=== PATIENT | female | born 1990 | race Caucasian/White ===

== ENCOUNTER 2023-01-21 06:58 | Emergency (ER) | payer MEDICAID, SELFPAY ==
[2023-01-21 07:05] VITALS: BP 108/81; PULSE 74; RESP 24; TEMP 35.5; O2SAT 98; BMI 40.2
--- NOTE | 2023-01-21 07:12 | ED_ITS ---
HPI - General Adult General Time Seen by Provider: 07:12 <Chace Soriano MD - Last Filed: 01/21/23 07:25> Date Seen: 01/21/23 <Chace Soriano MD - Last Filed: 01/21/23 07:25> Chief complaint: Abdominal Pain <Chace Soriano MD - Last Filed: 01/21/23 07:25> Stated complaint: Abdominal pain <Chace Soriano MD - Last Filed: 01/21/23 07:25> Time Seen by Provider: 01/21/23 07:12 <Chace Soriano MD - Last Filed: 01/21/23 07:25> Source: patient <Chace Soriano MD - Last Filed: 01/21/23 07:25> Mode of arrival: ambulatory <Chace Soriano MD - Last Filed: 01/21/23 07:25> Limitations: no limitations <Chace Soriano MD - Last Filed: 01/21/23 07:25> History of Present Illness HPI narrative: 32-year-old female who presents today with abdominal pain. Review of chart shows prior emergency department visit for kidney stones a couple years ago. Patient comes in today with abdominal pain and right-sided back pain. Also says she has difficulty going the bathroom. Started this morning. Nausea vomiting. No fevers, no diarrhea. Tried Pepto-Bismol without relief. Has not taken any other medications. <Chace Soriano MD - Last Filed: 01/21/23 07:25> Related Data Home medications: Previous Rx's Medication Instructions Recorded azithromycin 500 mg tablet 500 mg PO DAILY 7 days #7 tabs 01/21/23 (Zithromax) hydrocodone 5 mg-acetaminophen 325 1 tab PO Q6H PRN pain #10 tabs 01/21/23 mg tablet <Chace Soriano MD - Last Filed: 01/21/23 07:25> Allergies/adverse reactions: Allergies Allergy/AdvReac Type Severity Reaction Status Date / Time amoxicillin [From Augmentin] Allergy Verified 01/21/23 07:05 clavulanic acid Allergy Verified 01/21/23 07:05 [From Augmentin] <Chace Soriano MD - Last Filed: 01/21/23 07:25> PFSH PFSH Social History: Social History Smoking Status: Former smoker Do you use any of these nicotine containing products: None How often do you have a drink containing alcohol: monthly or less How many standard drinks containing alcohol do you have on a typical day: 1 or 2 How often do you have six or more drinks on one occasion: Never AUDIT-C Alcohol total score: 1 Non-prescribed substance use: denies use service: No <Chace Soriano MD - Last Filed: 01/21/23 07:25> Exam Narrative: Exam Narrative: General: Well-developed and well-nourished, tearful and diaphoretic Head: Atraumatic and normocephalic Eyes: Pupils are equal reactive, extraocular motions intact, conjunctiva clear ENT: External nose and ears are normal, posterior pharynx without erythema or exudate Neck: No midline cervical tenderness, full spontaneous range of motion the neck, trachea midline, no adenopathy Heart: Regular rate and rhythm no murmurs or thrills Lungs: Clear to auscultation bilaterally without wheezes or crackles Abdomen: Soft, nontender, nondistended with active bowel sounds Musculoskeletal: No tenderness, deformity, or edema Neurologic: Awake, alert, and oriented x3, no gross focal neurologic deficits, cranial nerves intact as tested Psych: Mood and affect are appropriate Skin: No rashes <Chace Soriano MD - Last Filed: 01/21/23 07:25> Const: Vital Signs, click to edit/add: Vital Signs - 24 hr 01/21/23 07:05 Temperature 96 F L Pulse Rate [Pulse Oximeter] 74 Respiratory Rate 24 Blood Pressure [Le ft Forearm] 108/81 Pulse Oximetry 98 Oxygen Delivery Me thod Room Air <Chace Soriano MD - Last Filed: 01/21/23 07:25> Vital Signs, click to edit/add: Vital Signs - 24 hr 01/21/23 07:05 Temperature 96 F L Pulse Rate [Pulse Oximeter] 74 Respiratory Rate 24 Blood Pressure [Le ft Forearm] 108/81 Pulse Oximetry 98 Oxygen Delivery Me thod Room Air <Davy Arvizu MD - Last Filed: 01/21/23 11:07> Course Course Hospital Course: Patient seen examined, prior records reviewed. Patient presents today with generalized abdominal pain that radiates into the right flank. Prior cholecystectomy, reports history of kidney stones but is not sure if this feels similar not. Labs and CT scan are ordered. Anticipate sign out to oncoming provider. <Chace Soriano MD - Last Filed: 01/21/23 07:25> Vital Signs Vital signs: Initial Vital Signs Temperature 96 F L 01/21/23 07:05 Temperature Source Temporal Artery Scan 01/21/23 07:05 Pulse Rate 74 01/21/23 07:05 Pulse Rhythm Regular 01/21/23 07:05 Respiratory Rate 24 01/21/23 07:05 Blood Pressure 108/81 01/21/23 07:05 Blood Pressure Mean 90 01/21/23 07:05 Blood Pressure Position Supine 01/21/23 07:05 Pulse Oximetry 98 01/21/23 07:05 Oxygen Delivery Method Room Air 01/21/23 07:05 Vital Signs Temperature 96 F L 01/21/23 07:05 Pulse Rate 74 01/21/23 07:05 Respiratory Rate 24 01/21/23 07:05 Blood Pressure 108/81 01/21/23 07:05 Pulse Oximetry 98 01/21/23 07:05 Oxygen Delivery Method Room Air 01/21/23 07:05 Temperature 96 F L 01/21/23 07:05 Pulse Rate 74 01/21/23 07:05 Respiratory Rate 24 01/21/23 07:05 Blood Pressure 108/81 01/21/23 07:05 Pulse Oximetry 98 01/21/23 07:05 Oxygen Delivery Method Room Air 01/21/23 07:05 <Chace Soriano MD - Last Filed: 01/21/23 07:25> Initial Vital Signs Temperature 96 F L 01/21/23 07:05 Temperature Source Temporal Artery Scan 01/21/23 07:05 Pulse Rate 74 01/21/23 07:05 Pulse Rhythm Regular 01/21/23 07:05 Respiratory Rate 24 01/21/23 07:05 Blood Pressure 108/81 01/21/23 07:05 Blood Pressure Mean 90 01/21/23 07:05 Blood Pressure Position Supine 01/21/23 07:05 Pulse Oximetry 98 01/21/23 07:05 Oxygen Delivery Method Room Air 01/21/23 07:05 Vital Signs Temperature 96 F L 01/21/23 07:05 Pulse Rate 74 01/21/23 07:05 Respiratory Rate 24 01/21/23 07:05 Blood Pressure 108/81 01/21/23 07:05 Pulse Oximetry 98 01/21/23 07:05 Oxygen Delivery Method Room Air 01/21/23 07:05 Temperature 96 F L 01/21/23 07:05 Pulse Rate 74 01/21/23 07:05 Respiratory Rate 24 01/21/23 07:05 Blood Pressure 108/81 01/21/23 07:05 Pulse Oximetry 98 01/21/23 07:05 Oxygen Delivery Method Room Air 01/21/23 07:05 <Davy Arvizu MD - Last Filed: 01/21/23 11:07> Medical Decision Making MDM Narrative Medical decision making narrative: Patient's CT scan abdomen pelvis showed right middle lobe pneumonia. The patient will be getting IV Rocephin and Zithromax. Will await the rest of her lab studies to return. Likely will be able to be discharged home on Zithromax 5 mg daily for 1 week. Light activity recommended Advil or Aleve as needed. Follow up with primary care in the next 2-3 days <Davy Arvizu MD - Last Filed: 01/21/23 11:07> Lab Data Labs: Lab Results 01/21/23 01/21/23 01/21/23 Range/Units 07:15 07:18 09:00 WBC 12.01 H (4.50-11.00) K/uL RBC 4.45 (4.00-5.20) m/uL Hgb 15.5 (12.0-16.0) gm/dL Hct 44.6 (33.0-51.0) % MCV 100 (80-100) fL MCH 35 H (26-34) pg MCHC 35 (32-36) gm/dL RDW Coeff of Em 14.4 (11.5-15.5) % Plt Count 302 (140-440) K/uL Neut % (Auto) 86.7 H (42.0-72.0) % Lymph % (Auto) 7.2 L (20-44) % [place] % (Auto) 4.8 (0.0-11.0) % Eos % (Auto) 0.9 (0.0-7.0) % Baso % (Auto) 0.2 (0.0-3.0) % Neut # (Auto) 10.40 H (1.7-7.0) K/uL Lymph # (Auto) 0.90 (0.90-2.90) K/uL [place] # (Auto) 0.60 (0.00-0.90) K/UL Eos # (Auto) 0.10 (0.00-0.50) K/uL Baso # (Auto) 0.00 (0.00-0.30) K/uL Sodium 139 (135-149) mmol/L Potassium 3.6 (3.6-5.1) mmol/L Chloride 106 (96-114) mmol/L Carbon Dioxide 19 L (20-32) mmol/L BUN 9 (5-24) mg/dL Creatinine 0.8 (0.5-1.5) mg/dL Estimated Creat Clear 107.15 Estimated GFR 99 ml/min Glucose 130 H (60-115) mg/dL Calcium 9.3 (8.4-10.6) mg/dL Magnesium 1.4 L (1.5-2.6) mg/dL Total Bilirubin 1.4 (0.1-1.5) mg/dL Direct Bilirubin 0.1 (0.0-0.5) mg/dL AST 56 H (12-35) U/L ALT 81 H (4-35) U/L Alkaline Phosphatase 106 (40-150) U/L Total Protein 7.8 (6.0-8.3) g/dL Albumin 4.7 (3.3-5.0) g/dL Lipase 51 (23-300) U/L HCG, Qual Negative (Negative) Urine Color Yellow Cancelled (Yellow) Urine Appearance Slightly Cloudy A Cancelled (Clear) Urine pH 7.0 Cancelled (5.0-8.5) Ur Specific [place] 1.020 Cancelled (1.000-1.030) Urine Protein 2+ A Cancelled (Negative) Urine Glucose (UA) Negative Cancelled (Negative) Urine Ketones 4+ A Cancelled (Negative) Urine Blood Negative Cancelled (Negative) Urine Nitrite Negative Cancelled (Negative) Urine Bilirubin 1+ A Cancelled (Negative) Urine Urobilinogen 0.2 Cancelled (0.2-1.0) Ur Leukocyte Esterase 3+ A Cancelled (Negative) Urine RBC 0-2 Cancelled (0-2) Urine WBC 2-5 Cancelled (0-5) Urine WBC Clumps Cancelled Ur Squamous Epith Cells Moderate A Cancelled (None-Few) Jacob Biurate Crystals Cancelled Calcium Carbonate Cryst Cancelled Calcium Phosphate Cryst Cancelled Calcium Oxalate Crystal Cancelled Cystine Crystals Cancelled Uric Acid Crystals Cancelled Triple Phos Crystals Cancelled Sulfur Crystals Cancelled Cholesterol Crystals Cancelled Tyrosine Crystals Cancelled Hippuric Acid Crystals Cancelled Amorphous Sediment Cancelled Other Sediment Cancelled Urine Bacteria Moderate A Cancelled (None) Fatty Casts Cancelled Hyaline Casts Cancelled Fine Granular Casts Cancelled Coarse Granular Casts Cancelled Waxy Casts Cancelled RBC Casts Cancelled WBC Casts Cancelled Other Casts Cancelled Urine Starch Cancelled Urine Mucus Cancelled Urine Trichomonas Cancelled Urine Yeast Cancelled <Chace Soriano MD - Last Filed: 01/21/23 07:25> Lab Results 01/21/23 01/21/23 01/21/23 Range/Units 07:15 07:18 09:00 WBC 12.01 H (4.50-11.00) K/uL RBC 4.45 (4.00-5.20) m/uL Hgb 15.5 (12.0-16.0) gm/dL Hct 44.6 (33.0-51.0) % MCV 100 (80-100) fL MCH 35 H (26-34) pg MCHC 35 (32-36) gm/dL RDW Coeff of Em 14.4 (11.5-15.5) % Plt Count 302 (140-440) K/uL Neut % (Auto) 86.7 H (42.0-72.0) % Lymph % (Auto) 7.2 L (20-44) % [place] % (Auto) 4.8 (0.0-11.0) % Eos % (Auto) 0.9 (0.0-7.0) % Baso % (Auto) 0.2 (0.0-3.0) % Neut # (Auto) 10.40 H (1.7-7.0) K/uL Lymph # (Auto) 0.90 (0.90-2.90) K/uL [place] # (Auto) 0.60 (0.00-0.90) K/UL Eos # (Auto) 0.10 (0.00-0.50) K/uL Baso # (Auto) 0.00 (0.00-0.30) K/uL Sodium 139 (135-149) mmol/L Potassium 3.6 (3.6-5.1) mmol/L Chloride 106 (96-114) mmol/L Carbon Dioxide 19 L (20-32) mmol/L BUN 9 (5-24) mg/dL Creatinine 0.8 (0.5-1.5) mg/dL Estimated Creat Clear 107.15 Estimated GFR 99 ml/min Glucose 130 H (60-115) mg/dL Calcium 9.3 (8.4-10.6) mg/dL Magnesium 1.4 L (1.5-2.6) mg/dL Total Bilirubin 1.4 (0.1-1.5) mg/dL Direct Bilirubin 0.1 (0.0-0.5) mg/dL AST 56 H (12-35) U/L ALT 81 H (4-35) U/L Alkaline Phosphatase 106 (40-150) U/L Total Protein 7.8 (6.0-8.3) g/dL Albumin 4.7 (3.3-5.0) g/dL Lipase 51 (23-300) U/L HCG, Qual Negative (Negative) Urine Color Yellow Cancelled (Yellow) Urine Appearance Slightly Cloudy A Cancelled (Clear) Urine pH 7.0 Cancelled (5.0-8.5) Ur Specific [place] 1.020 Cancelled (1.000-1.030) Urine Protein 2+ A Cancelled (Negative) Urine Glucose (UA) Negative Cancelled (Negative) Urine Ketones 4+ A Cancelled (Negative) Urine Blood Negative Cancelled (Negative) Urine Nitrite Negative Cancelled (Negative) Urine Bilirubin 1+ A Cancelled (Negative) Urine Urobilinogen 0.2 Cancelled (0.2-1.0) Ur Leukocyte Esterase 3+ A Cancelled (Negative) Urine RBC 0-2 Cancelled (0-2) Urine WBC 2-5 Cancelled (0-5) Urine WBC Clumps Cancelled Ur Squamous Epith Cells Moderate A Cancelled (None-Few) Jacob Biurate Crystals Cancelled Calcium Carbonate Cryst Cancelled Calcium Phosphate Cryst Cancelled Calcium Oxalate Crystal Cancelled Cystine Crystals Cancelled Uric Acid Crystals Cancelled Triple Phos Crystals Cancelled Sulfur Crystals Cancelled Cholesterol Crystals Cancelled Tyrosine Crystals Cancelled Hippuric Acid Crystals Cancelled Amorphous Sediment Cancelled Other Sediment Cancelled Urine Bacteria Moderate A Cancelled (None) Fatty Casts Cancelled Hyaline Casts Cancelled Fine Granular Casts Cancelled Coarse Granular Casts Cancelled Waxy Casts Cancelled RBC Casts Cancelled WBC Casts Cancelled Other Casts Cancelled Urine Starch Cancelled Urine Mucus Cancelled Urine Trichomonas Cancelled Urine Yeast Cancelled <Davy Arvizu MD - Last Filed: 01/21/23 11:07> Discharge Plan Discharge Clinical Impression: Abdominal pain, Pneumonia <Chace Soriano MD - Last Filed: 01/21/23 07:25> Patient Disposition: Home w/ Parent or Adult <Chace Soriano MD - Last Filed: 01/21/23 07:25> Condition: Stable <Chace Soriano MD - Last Filed: 01/21/23 07:25> Additional Instructions: Rest light activity, Zithromax daily for 1 week. Return to primary care in 2-3 days. norco as needed for pain <Chace Soriano MD - Last Filed: 01/21/23 07:25> Activity Level: Light activity <Chace Soriano MD - Last Filed: 01/21/23 07:25> Light activity <Davy Arvizu MD - Last Filed: 01/21/23 11:07> Discharge Diet: Regular <Chace Soriano MD - Last Filed: 01/21/23 07:25> Regular <Davy Arvizu MD - Last Filed: 01/21/23 11:07> Prescriptions: New azithromycin [Zithromax] 500 mg tablet 500 mg PO DAILY 7 Days Qty: 7 0RF hydrocodone-acetaminophen 5-325 mg tablet 1 tab PO Q6H PRN (Reason: pain) Qty: 10 0RF <Chace Soriano MD - Last Filed: 01/21/23 07:25> Stand Alone Forms: MyHealth Info Instructions <Chace Soriano MD - Last Filed: 01/21/23 07:25>
[2023-01-21 07:25] LABS: Appearance Urine Slightly Cloudy (Clear); Bilirubin Urine 1+ (Negative); Blood Urine Negative (Negative); Color Urine Yellow (Yellow); Glucose Urine Negative (Negative); Ketones Urine 4+ (Negative); Leukocyte Esterase Urine 3+ (Negative); Nitrite Urine Negative (Negative); Protein Urine 2+ (Negative); Urobilinogen Urine 0.2 (0.2-1.0)
[2023-01-21] MEDS: 0.9 % SODIUM CHLORIDE 1000 ml 1,000 ML IV (07:32)
[2023-01-21] MEDS: KETOROLAC 15 MG/ML inj IVP (07:32)
[2023-01-21] MEDS: ONDANSETRON 2 MG/ML inj 4 MG IVP ×2 (07:32→10:37)
[2023-01-21] MEDS: HYDROmorphone 0.5 mg/0.5 ml inj IVP (07:32)
[2023-01-21 07:49] LABS: Basophils Percent Auto 0.2 % (0.0-3.0); Eosinophils Percent Auto 0.9 % (0.0-7.0); Hematocrit 44.6 % (33.0-51.0); Hemoglobin* 15.5 gm/dL (12.0-16.0); Immature Granulocytes Pct Auto 0.2 %; Lymphocytes Percent Auto 7.2 % (20-44); Mean Corpuscular HGB Conc 35 gm/dL (32-36); Mean Corpuscular Hemoglobin 35 pg (26-34); Mean Corpuscular Volume 100 fL (80-100); Monocytes Percent Auto 4.8 % (0.0-11.0); Neutrophils Percent Auto 86.7 % (42.0-72.0); Platelet Count* 302 K/uL (140-440); RDW Coefficient of Variation % 14.4 % (11.5-15.5); Red Blood Count 4.45 m/uL (4.00-5.20); White Blood Count* 12.01 K/uL (4.50-11.00)
--- NOTE | 2023-01-21 07:49 | CRLHL7_ITS ---
For Patients: As a result of the Century Cures Act, medical imaging exams and procedure reports are released immediately into your electronic medical record. You may view this report before your referring provider. If you have questions, please contact your health care provider. INDICATION: Abdominal pain. History of stones. TECHNIQUE: CT abdomen and pelvis without contrast. COMPARISON: 02/17/2020. FINDINGS: Lower chest: Peripheral airspace infiltrate in the right middle lobe visualized on series 3, image 1. Liver: Diffuse fatty infiltration. No focal lesion. Gallbladder and bile ducts: Cholecystectomy. Pancreas: Unremarkable. No mass or inflammation. Spleen: Normal in size. No masses. Adrenal glands: Normal in size. No nodules. Kidneys: Numerous tiny nonobstructive bilateral renal stones. No ureteral stone and no hydronephrosis. GI tract: Unremarkable. Normal in caliber. No sign of mass or inflammation. Normal appendix. Vasculature: Abdominal aorta is normal in caliber. Lymph nodes: No lymphadenopathy. Peritoneum/Abdominal Wall: Unremarkable. No sign of mass or infiltration. No free air or significant free fluid. Pelvis: Unremarkable. No pelvic masses. Bones: Unremarkable for age. IMPRESSION: 1. Right middle lobe pneumonia. 2. Bilateral nonobstructive nephrolithiasis. No ureteral stones and no hydronephrosis. 3. No other acute or specific finding to explain abdominal pain. Please note that all CT scans at this facility use dose modulation, iterative reconstruction, and/or weight-based dosing when appropriate to reduce radiation dose to as low as reasonably achievable. Dictated by Emory Salinas MD @ 01/21/2023 8:33:19 AM (Electronically Signed)
[2023-01-21 07:54] LABS: Slide Review Reflex No
[2023-01-21 08:16] LABS: Albumin* 4.7 g/dL (3.3-5.0); Chloride* 106 mmol/L (96-114); Sodium* 139 mmol/L (135-149)
[2023-01-21 08:17] LABS: Potassium* 3.6 mmol/L (3.6-5.1)
[2023-01-21 08:18] LABS: Creatinine* 0.8 mg/dL (0.5-1.5); Est. Creatinine Clearance* 107.15; Estimated Glomerular Filt Rate 99 ml/min
[2023-01-21 08:19] LABS: Alanine Aminotransferase* 81 U/L (4-35); Alkaline Phosphatase* 106 U/L (40-150); Aspartate Amino Transferase* 56 U/L (12-35); Bilirubin Direct* 0.1 mg/dL (0.0-0.5); Bilirubin Total* 1.4 mg/dL (0.1-1.5); Blood Urea Nitrogen* 9 mg/dL (5-24); Calcium* 9.3 mg/dL (8.4-10.6); Carbon Dioxide* 19 mmol/L (20-32); Glucose* 130 mg/dL (60-115); Lipase* 51 U/L (23-300); Total Protein* 7.8 g/dL (6.0-8.3)
[2023-01-21 08:20] LABS: Magnesium* 1.4 mg/dL (1.5-2.6)
[2023-01-21] MEDS: 0.9 % SODIUM CHLORIDE 1000 ml 1,000 ML 6000 ML IV (09:13)
[2023-01-21 09:18] LABS: HCG Qualitative Serum* Negative (Negative)
[2023-01-21 09:21] LABS: Bacteria Urine Moderate; RBC Urine 0-2 (0-2); Squamous Epithelial Cell Urine Moderate (None-Few)
[2023-01-21] MEDS: AZITHROMYCIN 100 MG/ML inj 500 MG IVPB (09:23)
[2023-01-21] MEDS: cefTRIAXone 1 GM in 0.9 % SODIUM CHLORIDE Mini-bag 100 ML IVPB (10:29)
[2023-01-21] MEDS: HYDROCODONE/ACETAMIN 7.5-325 TABLET 1 TAB PO (10:40)
[2023-01-21 11:14] VITALS: BP 131/97; PULSE 73; RESP 24; TEMP 36.8; O2SAT 100
== END 2023-01-21 11:25 | disposition home or self-care (01) ==
PROVIDERS: Family Medicine; Emergency Provider Family Medicine; PCP Family Medicine
DX: R10.9 Unspecified abdominal pain (principal); J18.9 Pneumonia, unspecified organism
CPT/HCPCS: 36415; 74176; 80048; 80076; 81001; 81003; 81015; 83690; 83735; 84703; 85025; 87086; 96365; 96366; 96375; 99284; A9270; J0456; J0696; J1170; J1885; J2405; J7030

== ENCOUNTER 2025-09-15 19:58 | Emergency (ER) | payer MEDICAID, SELFPAY ==
--- OUTSIDE RECORDS SUMMARY | 2025-09-15 20:00 | XMS_ITS | Clinical Summary ---
Author Organization [employer] [facility] Address Formerly [facility], [facility] [place] [address] Care Team Providers Care Boring Mill Set Up Operator Name Role Phone Julienne Cleaning MD Primary Care Provider Allergies Active AllergyReactionsCriticalityNoted DateCommentsClavulanic AcidItching 02/17/2020KiwiTongue PtdsplyxXylr61/26/2017 Age 3. No kiwi since. Latex, Natural IscwnxZxtszHxjkjda01/07/2019Hydrocodone-AcetaminophenItching 3PineappleTongue KjohpsfcWxmx15/26/2017 Not swollen, but numb and tingly. In mixed juice (OJ/Pineapple, but OJ ok). Medications MedicationSigDispense QuantityRefillsLast FilledStart DateEnd DateStatus citalopram (CELEXA) 40 mg tablet Indications:KELLY (generalized anxiety disorder),Depression, recurrentTake 1 Tablet (40 mg) by mouth once daily in the morning. 100 Tablet 5Active QUEtiapine (SEROQUEL) 100 mg tablet Indications:KELLY (generalized anxiety disorder),Depression, recurrent,Insomnia, idiopathicTake 2-3 Tablets (200-300 mg) by mouth at bedtime. 300 Tablet 5Active dextroamphetamine-amphetamine (Adderall XR) 25 mg Extended-Release capsule Indications:Attention deficit hyperactivity disorder (ADHD), unspecified ADHD typeTake 1 Capsule (25 mg) by mouth once daily. 30 Capsule 5Active albuterol HFA (PRO-AIR; VENTOLIN; PROVENTIL) 90 mcg/actuation inhaler Indications:Subacute coughInhale 2 Puffs by mouth every 4 hours if needed for Shortness Of Breath or Wheezing. 3 Each 5Active LORazepam 1 mg tablet Indications:KELLY (generalized anxiety disorder)Take 0.5-1 Tablets (0.5-1 mg) by mouth every 6 hours if needed for Anxiety. 45 Tablet 5Active Active Problems ProblemNoted DateDiagnosed NamiJtjbmtunwc80/13/2024Myopia of both eyes with cqupxsdotys43/25/2023ttention deficit hyperactivity disorder (ADHD)12/30/2022 KELLY (generalized anxiety disorder)04/14/2011 Resolved Problems ProblemNoted DateDiagnosed DateResolved DatePap smear for cervical cancer qkcjmxurg99/03/2023 Overview (06/18/2022): 03/2022 NIL/HPV Negative Plan: Pap and HPV testing due in 5 years High dpghzfdjsutjh42/27/202208/03/2023 Overview (04/16/2022): 03/2022 - Klqhtwnghdkygf033Postpartum edqkbqr14Thin meconium stained amniotic fluidNSVD (normal spontaneous vaginal delivery)Single liveborn, born in hospital, rirdvnlhh99First degree perineal njlsftpxej29/29/2020 03/08/2020Periurethral laceration, delivered, current szyosguwmhgsqjp76/29/2020 03/08/2020Variable heart rate decelerations, xzmryrccq44 Lumbar disc iwzlwanqxh66Lumbar disc herniation with jfgdzehkcffvo85ack pain with cbtdobtezasys07/06/2020 03/08/20205780Jskwbbyuxaexmqd81/06/202008/03/2023High-risk in third Overview (09/08/2019): Prepregnancy BMI: 40.2 Early GCT: ordered 06/01 & pt will complete with IOB ASA: not indicated Dated by: LMP Would accept blood products: yes Medical History: Anxiety, frequent pyelonephritis & kidney stones, sciatica Support: Lenard Villasenor (spouse) Children: Gabbi, 1yo Breast feeding: Pediatrics Vit k Eye Hep b Circ CBE SPROM (prolonged spontaneous rupture of membranes) Overview (11/13/2015): now on Oxytocin for dysfunctional labor Primary dysfunctional laborClass 3 severe obesity without serious comorbidity with body mass index (BMI) of 45.0 to 49.9 in adult Maternal morbid obesity in third trimester, antepartum Thin meconium stained amniotic fluid vacuum-assisted vaginal yduziyye11Fetal and placental problem in , pqpzsagxjs64 Overview (11/13/2015): Two vessel cord; curvature of spine per consult by Dr. Keenan Rios at [facility]. Kidney stoneDiarrhea Overview (04/07/2011): Colonoscopy 03/2011 normal, EGD if persistent diarrhea Echogenic intracardiac focus of fetus on krfkdliufn83/18/2020Obesity affecting in second niwkjnwrz10/18/2020 Encounters DateTypeDepartmentCare KryiBeajheqcjqo73/31/2025[place] [facility] [address] [place] [address] Julienne Cleaning MD Refill Request (/LORazepam 1 mg tablet Take 0.5-1 Tablets (0.5-1 mg) by mouth every 6 hours if needed for Anxiety.//)from Last 3 Months Immunizations ImmunizationAdministration DatesNext DueCOVID-19 vaccine ([employer] 30mcg/0.3mL) 12YO+ TEMO-SUCROSE PF, MDV2COVID-19 vaccine ([employer]- [employer]NTSwagsy 30mcg/0.3mL) PF, MDV01/22/2021,01/01/2021HPV 9 (Gardasil 9)10/23/2011, 03/15/2007,01/05/2007Hepatitis A (Adult)03/15/2007Hepatitis A (Peds)03/15/2007 Hepatitis A, Raybgofmujf33/25/2007Human Papilloma Virus Loudiqv9710/23/2011, 08/16/2008,03/15/2007,01/05/2007Influenza A (H1N1), Zmgbzgtoxlz81/28/2010 Influenza, WAB402,06/27/2019,08/09/2018,07/19/2015Meningococcal Vaccine (Menactra)03/15/2007Td (Age >=7 Years)12/13/2002Tdap12/16/2019,10/16/2015, 10/23/2011,12/13/2002Tuberculin (PPD)03/15/2007 Family History Medical HistoryRelationNameCommentsGood HealthBrotherCarterADD / ADHDDaughter 1 NoraOtherDaughter 1NoraPolydactylyPyelonephritisDaughter 1NoraScoliosisDaughter 1Noraminimal issues, severe caseNo Known ProblemsDaughter 2ElizabethHypertension FathermedicationOtherFathersciaticaPulmonary embolismFatherfollowing Covid vaccine - ModernaParkinsonismMaternal GrandfatherFarmer Parkinson's r/t farm chemicalsHemophiliaMaternal GrandmothercarrierNephrolithiasisMaternal Grandmother& chronic UTIHemophiliaMaternal UncleCancerMothernon Hodgkins lymphoma, cured farm relatedCancer-breastOtherPaternal CousinCancer-breast Paternal AuntHeart DiseasePaternal GrandfatherHeart issues r/t smoking and diet. Kidney diseasePaternal GrandfatherUnilateral kidneyCancerPaternal Grandmother Either ovarian or uterine >50 years oldGood HealthSisterAmandaRelationNameStatus CommentsBrotherCarterAliveDaughter 1NoraAliveDaughter 2ElizabethAliveFatherAlive Maternal GrandfatherDeceasedMaternal GrandmotherDeceasedMaternal UncleAlive MotherAliveOtherPaternal CousinAlivePaternal AuntAlivePaternal Grandfather DeceasedPaternal GrandmotherDeceasedSisterAmandaAlive Social History Tobacco UseTypesPacks/DayYears UsedDateSmoking Tobacco: FormerCigarettes0.34.4 2007 - 02/2012Smokeless Tobacco: Never Tobacco Cessation:Counseling Given: Yes Comments:2 cigs daily Alcohol UseStandard Drinks/WeekCommentsYes2 (1 standard drink = 0.6 oz pure alcohol)Humiliation, Afraid, Rape, and Kick questionnaireAnswerDate RecordedFear of Current or Ex-ErkitzoJm62/07/2019Emotionally EqujglLw48/07/2019Physically FgbndaOo53/07/2019Sexually FmqgybWb34/07/2019PHQ-2AnswerDate RecordedPHQ-2 TOTAL HVCHL457Social ConnectionsAnswerDate RecordedDo you often feel lonely or isolated from those around you?Financial Resource StrainAnswerDate RecordedDifficulty of Paying Living Edhqiwvz163/18/2025Difficulty of Paying Living ExpensesNot on file05/08/2025Food InsecurityAnswerDate RecordedDo you worry your food will run out before you are able to buy more? Transportation NeedsAnswerDate RecordedDoes lack of transportation keep you from medical appointments?Does lack of transportation keep you from work, meetings or getting things that you need?Housing StabilityAnswerDate RecordedWhat is your housing situation today?UtilitiesAnswerDate RecordedDo you have trouble paying for utilities (for example, heat, electricity, water, phone)?CommentsNoSex and Gender InformationValueDate RecordedSex Assigned at BirthNot on fileLegal SexFemale 10/04/2012 5:26 AM CSTGender IdentityNot on fileSexual OrientationNot on file OccupationIndustryJob Start DateJob End DateFreelance Graphic DesignerNot on fileNot on fileNot on file Obstetrics History GravidaParaTermPretermABIABSABEctopicMultipleLivingLive Uhcvwz13482612740Rqvu OutcomeGATotal LaborLabor/2nd/3qzHsqsqeUcfKiyySrupBEWMppF1C2YneuXsmj57/23/2016 Qqcl84p8x48b 04m3.16 kg (6 lb 15.5 oz)FVag-MijhtbCjlxttzlHBpcakw30SvcbRc Ruth Complications: Intolerance,Failure to Progress in Second Stage,Maternal exhaustion complicating labor and delivery (HC),Nuchal cord with compression, delivered, current hospitalization (HC),Meconium in amniotic fluidDel[facility]admit 3[facility], pit augmentation, 2nd stage 11/14, GRACIELA with one popoff, maternal exhaustion, ineffective 2nd stage, EBL 750cc, LML epis, D/C HGB 10.7, VC, short cord and CAN times 2, delivered in the OR01/18/20207552Iiup70w8q5h 03m3.01 kg (6 lb 10.2 oz)FVag-UjukuAdzjpcdjPfzlce22 Anne-Marie Muro CNMDelivery Location:[facility] (UTD 2000 MB L&D TRIAGE) Comments:Prodromal labor > 39w, offered IOL for BMI > 40. Pitocin and AROM. QBL 550 Last Filed Vital Signs Vital SignReadingTime TakenCommentsBlood Eiwzlree707/7608 1:45 PM CDT Biowx36198/18/2025 1:45 PM XUNOhcobboqzao92.6 ??C (97.8 ??F)04/07/2025 6:34 PM CDTRespiratory Zbfd9210 6:34 PM CDTOxygen Sblmvfbepa65%05/08/2025 1:45 PM CDTInhaled Oxygen Concentration--Acxbbs787.2 kg (276 lb)05/08/2025 1:45 PM DQQNsoyqg974.7 cm (5' 8.39)05/08/2025 1:45 PM CDTBody Mass Index41.49005/08/2025 1:45 PM CDT Plan of Treatment Health MaintenanceDue DateLast DoneCommentsHepatitis B series for 19+ (1 of 3 - 19+ 3-dose series)2007Pneumococcal series for age 6-49 (1 of 2 - PCV) 2007COVID-19 vaccine series ( - 2024- season)502/07/2022, 01/22/2021, 01/01/2021Influenza Vaccine (#1)/04/2020, 06/27/2019, 08/09/2018, Additional history existsBMI (ht and wt on same day) for age 18+ /, 05/03/2024, 12/01/2023, Additional history exists Depression screening for age 12+/, 01/30/2025, 09/06/2024, Additional history existsPap test for age 21-650/, 04/14/2022, 01/02/2016, Additional history existsTetanus alpbyed65/27/, 10/16/2015, 10/23/2011, Additional history existsHPV series for age 9-45 Ixlpyoglx12/02/2012, 10/23/2011, 08/16/2008, Additional history existsHIV for age 15-33Verlfebuj15/27/2023, 06/01/2019Hepatitis C screening for age 18-79 Qtqkileql28/27/2023, 06/01/2019 Medical Devices ImplantedTypeAreaManufacturerDevice IdentifierShelf Expiration DateModel / Serial / LotStent Uret [id number] Silhouette - [id number] Implanted:Qty: 1 on 02/18/2020 [facility]: [id number] / / [id number] Procedures Procedure NamePriorityDate/TimeAssociated DiagnosisCommentsLC HIV-1/O/2, 4TH RODBYALJWFYzfiita36/27/2023 11:43 AM CDT Screen for STD (sexually transmitted disease) LC HCV ANTIBODY RFX TO QUANT RMAZwsjhjb07/27/2023 11:43 AM CDT Screen for STD (sexually transmitted disease) CAMPUS WELLNESS COORDINATOR THIN PREP PAP SCREEN TTCKLKMuuuvmx47/25/2022 2:46 PM CDT Pap smear for cervical cancer screening from Last 3 Months or Most Recently Relevant to Health Maintenance Results * LC HCV ANTIBODY RFX TO QUANT PCR (03/17/2023 11:43 AM CDT)ComponentValueRef RangeTest MethodAnalysis TimePerformed AtPathologist SignatureHCV AbNon ReactiveNon Lqusqxto03/30/2023 5:14 AM [facility]TLM[facility] ([facility])Specimen (Source)Anatomical Location / Laterality Collection Method / VolumeCollection TimeReceived TimeBloodBLOOD SPECIMEN / UnknownVenipuncture / Kwhrpzr6803/17/2023 11:43 AM CDT03/17/2023 11:[address] [facility]OTERIC TEST[facility] (CET) - 03/20/2023 5:14 AM CDT Performed at: [address] [place] [address] ??[phone] Rn Progressive Care Unit: Zbigniew Calvillo MD, Phone: ??[phone] Authorizing ProviderResult TypeResult StatusAmanlaureano Cleaning MDLABORATORY Final ResultPerforming OrganizationAddressCity/State/ZIP CodePhone Number [facility] (CET) [address] [place] [address] * LC HIV-1/O/2, 4TH GENERATION (03/17/2023 11:43 AM CDT)ComponentValueRef Range Test MethodAnalysis TimePerformed AtPathologist SignatureHIV Scr 4th GenNon ReactiveNon Urrqzhxa17/29/2023 11:06 PM CD[facility] ([facility])Comment: HIV Negative HIV-1/HIV-2 antibodies and HIV-1 p24 antigen were NOT detected. There is no laboratory evidence of HIV infection. Specimen (Source)Anatomical Location / LateralityCollection Method / Volume Collection TimeReceived TimeBloodBLOOD SPECIMEN / UnknownVenipuncture / Unknown 03/17/2023 11:43 AM CDT03/17/2023 11:43 AM CDT Narrative [facility] (CET) - 03/19/2023 11:06 PM CDT Performed at: 01 - [facility] [address] [place], [place] ??[phone] Rn Progressive Care Unit: Zbigniew Calvillo MD, Phone: ??[phone] Authorizing ProviderResult TypeResult StatusAmanlaureano Cleaning MDLABORATORY Final ResultPerforming OrganizationAddressCity/State/ZIP CodePhone Number [facility] (CET) [address] [place] [address], * CAMPUS WELLNESS COORDINATOR THIN PREP PAP SCREEN IMAGED (04/14/2022 2:46 PM CDT)ComponentValueRef RangeTest MethodAnalysis TimePerformed AtPathologist SignatureCase Report Gynecologic Cytology Report ? Case: [id number] ? Authorizing Provider: ??Carlita Augustin CNM ??Collected: ? 04/14/2022 1446 ? Ordering Location: ? [facility] ??Received: ?04/14/2022 1601 ? Clinic ? First Screen: ?[place] ? Specimen: ?CAMPUS WELLNESS COORDINATOR ThinPrep Vial Screening, Cervical ? 04/28/2022 4:57 PM [facility] INTERPRETATION/RESULTNEGATIVE FOR INTRAEPITHELIAL LESION OR MALIGNANCY (NIL) (none)04/28/2022 4:57 PM [facility] at 1657 CDTORGANISM(S)Shift in kristine suggestive of bacterial jiqtlnfmz56/08/2022 4:57 PM [facility] LABORATORYSPECIMEN ADEQUACYSatisfactory for evaluation No endocervical component seen04/28/2022 4:57 PM [facility] LABORATORYHPV REQUESTHPV and PAP04/28/2022 4:57 PM [facility] LABORATORYDate of LMP7 4:57 PM [facility] LABORATORYLast Pap Date01/01 4:57 PM CDT [facility] LABORATORYLast Pap NywyulSOJ34/08/2022 4:57 PM [facility] LABORATORYAbnormal Pap or Robinson Bx in last 5 tcnpsVa3704/28/2022 4:57 PM [facility] Menstrual StatusRegular Lldedpx0004/28/2022 4:57 PM [facility] LABORATORYColp Bx Done UqhgyLz9004/28/2022 4:57 PM [facility]ORYAdditional InformationNone given04/28/2022 4:57 PM [facility] LABORATORYComment: Cytology is screened at [facility] - [address], [place] [address] and [facility] - [address] [place] [address] and [facility] - [address] [place] [address] Interpreted at [facility] - [address], [place] [address] Automated IsdmfaTtqkeuyfvl02/08/2022 4:57 PM [facility] LABORATORYComment:Specimen processed successfully by automated oracle etl developer device, ThinPrep Imaging System, [employer]ANCILLARY TESTING GYNHPV Ordered, Please see separate kmvuha6004/28/2022 4:57 PM [facility] LABORATORYNoteThe pap test is a screening technique, not a diagnostic procedure. It is used primarily to screen for squamous cancers and precursor lesions. Published studies have shown that it is subject to both false negative and false positive results. The pap test should not be used as the sole means to diagnose or exclude pre-malignant and malignant lesions.04/28/2022 4:57 PM [facility] LABORATORYSpecimen (Source)Anatomical Location / LateralityCollection Method / VolumeCollection TimeReceived TimeOther (Cervical) Non-Blood / Xelclma7004/14/2022 2:46 PM CDT04/14/2022 4:01 PM CDT Narrative Authorizing ProviderResult TypeResult StatusAnn Lory Augustin CNM PATHOLOGY/CYTOLOGYFinal ResultPerforming OrganizationAddressCity/State/ZIP Code Phone Number [facility] [address] [place] [address], [place] from Last 3 Months or Most Recently Relevant to Health Maintenance Insurance * Guarantor: Annelise Villasenorcotor TypeRelation to PatientDate of BirthPhone Billing AddressPersonal/CnbzvqEuix1990 [address] [place] [address] Advance Directives * Full Code (Latest Code Status on File) Date ActivatedDate InactivatedComments02/17/2020 11:19 PM02/18/2020 7:33 PM * Full Code Date ActivatedDate InactivatedComments01/17/2020 1:40 PM01/19/2020 2:44 PMQuestion AnswerCommentsCode Status Discussion:* Not Discussed * Full Code Date ActivatedDate InactivatedComments09/26/2019 5:38 PM09/27/2019 6:08 PM * Full Code Date ActivatedDate InactivatedComments11/13/2015 6:55 PM2 8:50 PM * Full Code Date ActivatedDate InactivatedComments11/13/2015 2:21 AM11/13/2015 6:55 PM Care Teams Team MemberRelationshipSpecialtyStart [place] [address] [place] [address] PCP - GeneralFamily Practice11/14/20
--- OUTSIDE RECORDS SUMMARY | 2025-09-15 20:00 | XMS_ITS | Clinical Summary ---
Author Organization [facility] Address [address] [place] [id number] Care Team Providers Care Sole Conforming Machine Operator Name Role Phone Julienne Cleaning MD Primary Care Provider Shaniqua Mendenhall MD Unavailabl e Allergies Active AllergyReactionsCriticalityNoted DateCommentsAmoxicillin-Pot Clavulanate 07/30/2011 itchy Amoxicillin-Pot ClavulanateItching,BspsSez34/04/6916Usai98/26/2017Morphine TxnxaloCznpEsp30/16/2012Oxycodone-AcetaminophenOther (See Comments)02/13/2017 Axvgpvsuv93/26/2017 Medications MedicationSigDispense QuantityRefillsLast FilledStart DateEnd DateStatus IBUPROFEN PO Take 600 mg by mouthActive HYDROcodone-acetaminophen (NORCO) 5-325 MG per tablet Take 1-2 tablets by mouth every 4 hours as needed for pain 15 tablet 02/13/2017Active citalopram (CELEXA) 40 MG tablet Indications:Major Depressive DisorderTake 40 mg by mouth dailyActive LORazepam (ATIVAN) 0.5 MG tablet Indications:AnxietyTake 0.5 mg by mouth every 6 hours as needed for anxiety Active QUEtiapine (SEROQUEL) 100 MG tablet Take 100-200 mg by mouth 2 times daily as neededActive amphetamine-dextroamphetamine (ADDERALL XR) 20 MG 24 hr capsule Indications:Attention Deficit Hyperactivity DisorderTake 20 mg by mouth daily Active Active Problems ProblemNoted DateDiagnosed UryiHbazpyfonei35/22/6586Fsymffth56/22/2013 Overview (06/22/2015): Problem list name updated by automated process. Provider to review Elevated blood pressure reading without diagnosis of elldvajbkalt98/10/2012 Kphfpgwl49/05/6006Jfzoqsplhfrd48/05/5894Vnayeh27/05/2011CARDIOVASCULAR SCREENING; LDL GOAL LESS THAN 3113407/21/20105369Knnfczx49/28/2009Mild major rnxidkdadl61/28/2009Calculus of zoayou5001/05/20078438Ycttasz01/17/2007 Overview (06/21/2015): Problem list name updated by automated process. Provider to review Immunizations ImmunizationAdministration DatesNext IpzOXOA1203/15/2007HPV10/23/2011,03/15/2007, 01/05/2007Mantoux Tuberculin Skin Test03/15/2007Meningococcal ACWY (Menactra??) 03/15/2007TDAP Vaccine (Adacel)10/23/2011 Family History Medical HistoryRelationCommentsFamily History NegativeBrother 2Family History NegativeFatherBlood DiseaseMaternal Uncle 1hemophelia.DiabetesMaternal Uncle 2 TP5OmrabdOqrngsKloskxLtwyboDgu-Jaqczgyk LymphomaC.A.D.Paternal UncleMI late 40's (also smoker, obese)Family History NegativeSister 2RelationStatusCommentsBrother 1AliveBrother 2FatherAliveMaternal GrandfatherAliveMaternal GrandmotherAlive Maternal Uncle 1Maternal Uncle 2MotherAlivePaternal GrandfatherAlivePaternal GrandmotherDeceasedPaternal UncleSister 1AliveSister 2 Social History Tobacco UseTypesPacks/DayYears UsedDateSmoking Tobacco: EzfeziScucfzhxxr6Qgyf: 09/04/2012Smokeless Tobacco: Never Comments:pt quit smoking Alcohol UseStandard Drinks/WeekCommentsNo0 (1 standard drink = 0.6 oz pure alcohol)Adolescent EducationAnswerDate RecordedGetting School Help NeededNot on file3CommentsNoSex and Gender InformationValueDate RecordedSex Assigned at BirthNot on fileLegal MmyOjerfv03/04/2012 4:45 AM CSTGender Identity Not on fileSexual OrientationNot on file Last Filed Vital Signs Vital SignReadingTime TakenCommentsBlood Vudyjqnt202/7304/25/2024 12:05 AM CDT Hfzhe477104/25/2024 12:05 AM XMCJgzxyckmghm31.4 ??C (97.6 ??F)04/24/2024 10:21 PM CDTRespiratory Ftzv119704/24/2024 10:21 PM CDTOxygen Myxnqmgqnp76%04/25/2024 12:20 AM CDTInhaled Oxygen Concentration--Hajagx313.2 kg (265 lb)02/13/2017 9:31 AM RPLUxpbus883.3 cm (5' 9)02/13/2017 9:31 AM CDTBody Mass Index39.13002/13/2017 9:31 AM CDT Plan of Treatment Health MaintenanceDue DateLast DoneCommentsADVANCE CARE TOBFDMNL1988ANNUAL REVIEW OF HM TJYTXW90 1988HEPATITIS B VACCINE (1 of 3 - 19+ 3-dose series) 2007PHQ-907/, 08/25/2011, 07/30/2011YEARLY PREVENTIVE VISIT/03/2023, 04/14/2022, 01/05/2007PAP/, 03/29/2011, 08/12/2010COVID-19 VACCINE ( season)/07/2022, 01/22/2021, 01/01/2021INFLUENZA VACCINE (#1)/04/2020, 06/27/2019, 08/09/2018, Additional history existsDIABETES TRGCAEBIJ11/12/2023, 07/06/2012, 04/18/2012, Additional history existsDTAP/TDAP/TD VACCINE (5 - Td or Tdap), 10/16/2015, 10/23/2011, Additional history exists ZOSTER VACCINE (1 of 2)2038MENINGITIS MGACKRWJptdzskjo79/25/2007HPV YDGHSWKPytnvnnfl77/02/2012, 08/16/2008, 03/15/2007, Additional history exists DEPRESSION ACTION QHXMZhqiqgtff97/06/2013, 08/25/2011HEPATITIS C SCREENING Okiohnskg26/27/2023HIV IVGKRXGMAXhnydxnvt75/27/2023NEUMOCOCCAL VACCINE: PEDIATRICS (0 to 5 YEARS) AND AT-RISK PATIENTS (6 to 49 YEARS)Aged OutNo longer eligible based on patient's age to complete this topic Medical Devices ImplantedTypeAreaManufacturerDevice IdentifierShelf Expiration DateModel / Serial / LotStent Ureteral Inlay [id number] Implanted:Qty: 1 on 07/06/2012 [facility] [id number] / / [id number] Procedures Procedure NamePriorityDate/TimeAssociated DiagnosisCommentsBASIC METABOLIC PANEL STAT04/24/2024 11:33 PM CDT PAP IMAGED THIN LAYER LEDQVSYxdocvj55/09/2011 Screening for malignant neoplasm of the cervix from Last 3 Months or Most Recently Relevant to Health Maintenance Results * (ABNORMAL) Basic metabolic panel (04/24/2024 11:33 PM CDT)ComponentValueRef RangeTest MethodAnalysis TimePerformed AtPathologist KjavxgbbbXdfccj547782 - 145 mmol/L04/25/2024 12:07 AM CDTRH LABORATORYPotassium3.3(L)3.4 - 5.3 mmol/L 04/25/2024 12:07 AM CDTRH MQDHOTSERCBeadyrjk83365 - 107 mmol/L04/25/2024 12:07 AM CDTRH LABORATORYCarbon Dioxide (CO2)17(L)22 - 29 mmol/L04/25/2024 12:07 AM CDTRH LABORATORYAnion Gap21(H)7 - 15 mmol/L04/25/2024 12:07 AM CDTRH LABORATORYUrea Nitrogen7.36.0 - 20.0 mg/dL04/25/2024 12:07 AM CDTRH LABORATORY Creatinine0.820.51 - 0.95 mg/dL08/01/2024 12:07 AM CDTRH LABORATORYGFR Estimate>90>60 mL/min/1.02v63904/25/2024 12:07 AM CDTRH LABORATORYComment:eGFR calculated using 2020 CKD-EPI equation.Calcium9.38.8 - 10.4 mg/dL04/25/2024 12:07 AM CDTRH LABORATORYComment:Reference intervals for this test were updated on 04/05/2024 to reflect our healthy population more accurately. There may be differences in the flagging of prior results with similar values performed with this method. Those prior results can be interpreted in the context of the updated reference intervals.Mdzanwf292(H)70 - 99 mg/dL 04/25/2024 12:07 AM CDTR LABORATORYSpecimen (Source)Anatomical Location / LateralityCollection Method / VolumeCollection TimeReceived TimeBloodSTRUCTURE OF RIGHT HAND / UnknownVenipuncture / Jticqxc1104/24/2024 11:33 PM CDT04/24/2024 11:48 PM CDT Narrative Authorizing ProviderResult TypeResult StatusJenoemy Saeed MDLAB - BLOOD ORDERABLESFinal ResultPerforming OrganizationAddressCity/State/ZIP CodePhone Number [facility] [address] [facility] (1st floor, no room number) [place] [address], [facility] * PAP imaged thin layer, screen (03/29/2011)ComponentValueRef RangeTest Method Analysis TimePerformed AtPathologist SignaturePAP DateMISYSPAPMISYSSpecimen (Source)Anatomical Location / LateralityCollection Method / VolumeCollection TimeReceived TimeCytologic material (specimen) Narrative Authorizing ProviderResult TypeResult StatusChace Vickers MDLAB - OPTIME CLINICAL SPECIMENFinal ResultPerforming OrganizationAddressCity/State/ZIP Code Phone Number [facility] from Last 3 Months or Most Recently Relevant to Health Maintenance Insurance * Guarantor: Annelise Villasenor GAccount TypeRelation to PatientDate of BirthPhone Billing AddressPersonal/ZqjpclWuuz1990 [address] [place] [address] * Guarantor: Annelise Villasenor TypeRelation to PatientDate of BirthPhone Billing AddressPersonal/IhoxlaZzlc1990 [address] [place] [address] [facility] Address: [address] [address] * Guarantor: Annelise Villasenor TypeRelation to PatientDate of BirthPhone Billing AddressPersonal/HqripwGxef1990 [address] [place] [address] Care Teams Team MemberRelationshipSpecialtyStart [place] [address] [place], [place] [id number] PCP - GeneralFamily Hnyxgobk36/5/23 [place] [address] [place], [place] [id number] [facility]06/25/23
[2025-09-15 20:20] VITALS: BP 124/71; PULSE 129; RESP 22; TEMP 37.6; O2SAT 93; BMI 38.7
--- NOTE | 2025-09-15 21:00 | ED.GENADULT ---
HPI - General Adult General Chief complaint: Nausea/Vomiting Stated complaint: Flu/sick Time Seen by Provider: 09/15/25 20:54 History of Present Illness HPI narrative: Patient presents with flulike symptoms. She hasn't been able to keep food or water down since Thursday. Patient having pain in back wrapping around to belly. Patient is also having congestion. Patient has not been able to take any of her medications. 35-year-old woman presenting to the emergency department with concern of vomiting. She has developed some back pain wrapping around which she would attribute to the persistent vomiting. No hematemesis described. No dysuria. Has had decreased urine output though because she can not keep anything down. Has been chilled. Measured temp up to 102. Has been able to take her medications particularly psychiatric medications and so she feels even worse. She presents with her mother. She is in a bathrobe only. Related Data Home Medications ?Medication ?Instructions ?Recorded ?Confirmed citalopram 40 mg tablet 40 mg PO DAILY 09/15/25 09/15/25 dextroamphetamine-amphetamine ER 1 cap PO QAM 09/15/25 09/15/25 25 mg 24hr capsule,extend release lorazepam 1 mg tablet 0.5 - 1 mg PO Q6H PRN anxiety 09/15/25 09/15/25 quetiapine 100 mg tablet mg PO 09/15/25 Previous Rx's ?Medication ?Instructions ?Recorded hydrocodone 5 mg-acetaminophen 325 1 tab PO Q6H PRN pain #10 tabs 05// mg tablet Allergies Allergy/AdvReac Type Severity Reaction Status Date / Time amoxicillin (From Augmentin) Allergy Verified 09/15/25 20:28 clavulanic acid (From Allergy Verified 09/15/25 20:28 Augmentin) Review of Systems Status of ROS: Reports: 6 or more systems reviewed and unremarkable except as noted in History and below [facility] Social History Smoking Status: Former smoker Do you use any of these nicotine containing products: None How often do you have a drink containing alcohol: monthly or less How many standard drinks containing alcohol do you have on a typical day: 1 or 2 How often do you have six or more drinks on one occasion: Never AUDIT-C Alcohol total score: 1 Non-prescribed substance use: denies use service: No Exam Narrative: Exam Narrative: does appear uncomfortable. Subtly labored in her breathing. Lungs appear clear though. Oropharynx a little sticky. Heart is tachycardic in a regular rhythm. Abdomen is soft and sore palpation in the epigastrium/upper abdomen. No peritoneal signs. Extremities are well perfused without edema. Skin is notably warm. Without apparent rash. Const: Vital Signs, click to edit/add: Vital Signs - 24 hr 09/15/25 20:20 Temperature 99.6 F Pulse Rate [Pulse Oximeter] 129 H Respiratory Rate 22 Blood Pressure [Ri ght Upper Arm] 124/71 Pulse Oximetry 93 Oxygen Delivery Me thod Room Air Documenting provider has reviewed patient's vital signs: yes Course Vital Signs Vital signs: Initial Vital Signs Temperature 99.6 F 09/15/25 20:20 Temperature Source Temporal Artery Scan 09/15/25 20:20 Pulse Rate 129 H 09/15/25 20:20 Respiratory Rate 22 09/15/25 20:20 Blood Pressure 124/71 09/15/25 20:20 Blood Pressure Mean 88 09/15/25 20:20 Pulse Oximetry 93 09/15/25 20:20 Oxygen Delivery Method Room Air 09/15/25 20:20 Vital Signs Temperature 99.6 F 09/15/25 20:20 Pulse Rate 129 H 09/15/25 20:20 Respiratory Rate 22 09/15/25 20:20 Blood Pressure 124/71 09/15/25 20:20 Pulse Oximetry 93 09/15/25 20:20 Oxygen Delivery Method Room Air 09/15/25 20:20 Temperature 99.6 F 09/15/25 20:20 Pulse Rate 101 H 09/15/25 22:26 Respiratory Rate 18 09/15/25 22:26 Blood Pressure 125/71 09/15/25 22:26 Pulse Oximetry 97 09/15/25 22:26 Oxygen Delivery Method Room Air 09/15/25 22:26 Medications Administered Medications: Discontinued Medications Generic Name Dose Route Start Last Admin Trade Name Freq PRN Reason Stop Dose Admin Sodium Chloride 1,000 mls @ 1,000 mls/hr 09/15/25 21:06 09/15/25 22:24 0.9 % Sodium Chloride 1000 Ml IV 09/15/25 22:05 Infused .Q1H ONE Infusion Ketorolac Tromethamine 30 mg 09/15/25 21:06 09/15/25 21:18 Ketorolac 30 Mg/Ml Inj IVP 09/15/25 21:07 30 mg ONCE ONE Administration Ondansetron HCl 4 mg 09/15/25 21:06 09/15/25 21:18 Ondansetron 2 Mg/Ml Inj IVP 09/15/25 21:07 4 mg ONCE ONE Administration Medical Decision Making MDM Narrative Medical decision making narrative: This could be gastrointestinal illness unspecified. No concerning ingestions. Considering community prevalence would check for COVID influenza. Abrupt discontinuation of her psychiatric medications is likely worsening her symptoms. will offer symptom relief and swab for COVID and influenza. Do not think has been sick long enough to have destabilized electrolytes. Abdominal exam is not alarming. Pending negative results from swabs or lack of improvement with treatment would consider further evaluation. Initiated IV fluids, ketorolac, Zofran. Positive for COVID. on reassessment is improved. Feels she can go home and convalesce. should not need Paxlovid. see patient discharge plan for further discussion Focus on hydration. Slow advance of diet over the next 24-36 hours. Diluted juices, soup broth, toast, rice, crackers. Recommending quarantine for 10 days from 1st day of symptoms. At that point would also do antigen/home test to verify COVID clearance. Be seen again for inability to control fever, intractable vomiting or diarrhea, persistent increasing chest pain, increasing shortness of breath. Prescribing Zofran as requested from [facility]. Lab Data Labs: Lab Results 09/15/25 Range/Units 20:35 SARS-CoV-2 (PCR) POSITIVE SARS-CoV-2 A (Negative) Influenza Type A (PCR) Negative PCR FLU A (Negative) Influenza Type B (PCR) Negative PCR FLU B (Negative) RSV (PCR) Negative PCR RSV (Negative) Discharge Plan Discharge Clinical Impression: COVID-19 Patient Disposition: Home w/ Parent or Adult Condition: Improved Additional Instructions: Focus on hydration. Slow advance of diet over the next 24-36 hours. Diluted juices, soup broth, toast, rice, crackers. Recommending quarantine for 10 days from 1st day of symptoms. At that point would also do antigen/home test to verify COVID clearance. Be seen again for inability to control fever, intractable vomiting or diarrhea, persistent increasing chest pain, increasing shortness of breath. Prescribing Zofran as requested from [facility]. Prescriptions: No Action citalopram 40 mg tablet 40 mg PO DAILY quetiapine 100 mg tablet PO lorazepam 1 mg tablet 0.5 - 1 mg PO Q6H PRN (Reason: anxiety) dextroamphetamine-amphetamine 25 mg capsule,extended release 24hr 1 cap PO QAM hydrocodone-acetaminophen 5-325 mg tablet 1 tab PO Q6H PRN (Reason: pain) Qty: 10 0RF Follow Up/Referrals: Julienne Cleaning MD [Primary Care Provider, Family Practice] Stand Alone Forms: Jaxtr Info Instructions
[2025-09-15] MEDS: ONDANSETRON 2 MG/ML inj 4 MG IVP (21:18)
[2025-09-15 21:23] LABS: PCR FLU A Negative PCR FLU A (Negative); PCR FLU B Negative PCR FLU B (Negative); PCR RSV Negative PCR RSV (Negative); SARS PCR* POSITIVE SARS-CoV-2 (Negative)
[2025-09-15 22:26] VITALS: BP 125/71; PULSE 101; RESP 18; O2SAT 97
== END 2025-09-15 22:32 | disposition home or self-care (01) ==
PROVIDERS: Emergency Provider Family Medicine; PCP Family Medicine
DX: U07.1 COVID-19 (principal); Z87.891 Personal history of nicotine dependence
CPT/HCPCS: 87631; 96361; 96374; 96375; 99284; J1885; J2405; J7030